=== PATIENT | male | born 1990 | race Caucasian/White ===

== ENCOUNTER 2024-02-19 10:02 | Emergency (ER) | payer BC, MEDICAID ==
[2024-02-19 10:38] VITALS: RESP 18
--- NOTE | 2024-02-19 10:46 | ED ---
Male Urogenital HPI - General Chief complaint: Urogenital Stated complaint: Swollen testies Time Seen by Provider: 02/19/24 10:24 Source: patient, family, RN notes reviewed Mode of arrival: wheelchair Limitations: no limitations - History of Present Illness Initial comments: This is a 33 year old male who presents to the emergency department for testicul ar swelling. States that yesterday he started to notice swelling to the left testicle. This happened to him a couple of years ago and states that it was due to a UTI. He saw his primary care provider who tested his urine and noted that there was some bacteria, but no nitrites in the urine. He was however started on Bactrim due to the bacteria and history of UTIs causing swelling to the testicle. He presents to the emergency department to make sure nothing else is going on. Denies any pain associated with this or drainage from the urethra. Complaint: testicle swelling - Related Data Previous Rx's Medication Instructions Recorded Levofloxacin [Levaquin] 500 mg PO DAILY 10 Days #10 tab 02/19/24 Allergies Allergy/AdvReac Type Severity Reaction Status Date / Time No Known Allergies Allergy Verified 02/19/24 10:11 Review of Systems ROS Statement: Those systems with pertinent positive or pertinent negative responses have been documented in the HPI. ROS Other: All systems not noted in ROS Statement are negative. Past Medical History Past Medical History: No Reported History History of Any Multi-Drug Resistant Organisms: None Reported Additional Past Surgical History / Comment(s): Back surgery 2007 Past Psychological History: No Psychological Hx Reported Smoking Status: Never smoker Past Alcohol Use History: Occasional Past Drug Use History: None Reported General Exam Limitations: no limitations General appearance: alert, in no apparent distress Head exam: Present: atraumatic, normocephalic, normal inspection Respiratory exam: Present: normal lung sounds bilaterally. Absent: respiratory distress, wheezes, rales, rhonchi, stridor Cardiovascular Exam: Present: regular rate, normal rhythm, normal heart sounds. Absent: systolic murmur, diastolic murmur, rubs, gallop, clicks exam: Present: other (Swelling to the left testicle with no erythema or tenderness. No urethral drainage.) Expanded exam: Cremasteric Reflex Present: Left, Right Neurological exam: Present: alert, oriented X3, CN II-XII intact Psychiatric exam: Present: normal affect, normal mood Skin exam: Present: warm, dry, intact, normal color. Absent: rash Course Vital Signs 02/19/24 02/19/24 10:06 12:17 Temperature 98 F 98.2 F Pulse Rate 120 H 99 Respiratory 18 18 Rate Blood Pressure 138/96 134/85 O2 Sat by Pulse 99 99 Oximetry Medical Decision Making - Medical Decision Making This is a 33-year-old male who presents to the emergency department for testicular swelling. Was pt. sent in by a medical professional or institution? @ -No Did you speak to anyone other than the patient for history? @ -No Did you review nursing and triage notes? @ -Yes, and I agree, it is accurate with regards to the patient's symptoms. Were old charts reviewed? @ -No Differential Diagnosis? @ -Differential Testicular Swelling: Epididymitis, varicocele, hydrocele, testicular torsion, UTI, STD, and is not meant to be all-inclusive list. EKG interpreted by me (3pts min.)? @ -Not obtained X-rays interpreted by me (1pt min.)? @ -Not obtained CT interpreted by me (1pt min.)? @ -Not obtained U/S interpreted by me (1pt. min.)? @ -Scrotal ultrasound obtained. My interpretation identifies no evidence of a testicular torsion. What testing was considered but not performed? (CT, X-rays, U/S, labs)? Why? @ -None What meds were considered but not given? Why? @ -None Did you discuss the management of the patient with other professionals? @ -No Did you reconcile home meds? @ -No Was smoking cessation discussed for >3mins.? @ -No Was critical care preformed (if so, how long)? @ -No Were there social determinants of health that impacted care today? How? (Homelessness, low income, unemployed, alcoholism, drug addiction, transportation, low edu. Level, literacy, decrease access to med. care, fdc, rehab)? @ -No Was there de-escalation of care discussed even if they declined? (Discuss DNR or withdrawal of care, Hospice)? @ -No What co-morbidities impacted this encounter? (DM, HTN, Smoking, COPD, CAD, Cancer, CVA, Hep., AIDS, mental health diagnosis, sleep apnea, morbid obesity)? @ -None Was patient admitted / discharged? @ -Discharged. Urinalysis demonstrates few bacteria but was not overtly positive for infection. Urine sent for culture. Scrotal ultrasound demonstrates a complex fluid collection around the left testicle with increased vascular flow findings concerning for epididymoorchitis. Findings reviewed with the patient. Prescription for Levaquin provided with dosing instructions reviewed. Also advised follow-up with his urologist. We discussed elevation of the scrotum, ibuprofen, and Tylenol as needed for discomfort. Undiagnosed new problem with uncertain prognosis? @ -None Drug Therapy requiring intensive monitoring for toxicity (Heparin, Nitro, Insulin, Cardizem)? @ -None Were any procedures done? @ -None Diagnosis/symptom? @ -Epididymoorchitis Acute, or Chronic, or Acute on Chronic? @ -Acute Uncomplicated (without systemic symptoms) or Complicated (systemic symptoms)? @ -Uncomplicated Side effects of treatment? @ -None Exacerbation, Progression, or Severe Exacerbation] @ -Not applicable Poses a threat to life or bodily function? @ -No Return precautions reviewed in depth, the patient is instructed to return to the emergency department with any new, worsening, or concerning symptoms. Patient verbalized understanding. This case was discussed in detail with the attending ED physician, Dr. Tse. Presentation, findings, and treatment plan discussed in detail as well. - Lab Data Lab Results 02/19/24 Range/Units 11:17 Urine Color Colorless Urine Appearance Clear (Clear) Urine pH 6.5 (5.0-8.0) Ur Specific [place] 1.002 (1.001-1.035) Urine Protein Negative (Negative) Urine Glucose (UA) Negative (Negative) Urine Ketones Negative (Negative) Urine Blood Negative (Negative) Urine Nitrite Negative (Negative) Urine Bilirubin Negative (Negative) Urine Urobilinogen <2.0 (<2.0) mg/dL Ur Leukocyte Esterase Small H (Negative) Urine RBC <1 (0-5) /hpf Urine WBC 3 (0-5) /hpf Ur Squamous Epith Cells <1 (0-4) /hpf Urine Bacteria Few H (None) /hpf Urine Yeast (Budding) Occasional H (None) /hpf - Radiology Data Radiology results: report reviewed, image reviewed Disposition Clinical Impression: Epididymo-orchitis, acute Disposition: HOME SELF-CARE Instructions (If sedation given, give patient instructions): Epididymo-Orchitis (ED) Additional Instructions: Return to the emergency department with any new, worsening, or concerning symptoms. Stop taking the Bactrim and begin taking the Levaquin once daily for 10 days. Follow-up with your urologist and let the IVF specialist know that you were diagnosed with epididymoorchitis and started on Levaquin. Follow up with your primary care provider in 1-2 days. Prescriptions: Levofloxacin [Levaquin] 500 mg PO DAILY 10 Days #10 tab Is patient prescribed a controlled substance at d/c from ED?: No Referrals: Carissa Peterson DO [Primary Care Provider] - 1-2 days Time of Disposition: 12:08
--- NOTE | 2024-02-19 11:17 | US ---
EXAMINATION TYPE: US scrotum with doppler. Grayscale and color Doppler Duplex imaging performed of t socrates scrotum. DATE OF EXAM: 02/19/2024 COMPARISON: 10/23/2014 CLINICAL INDICATION: Male, 33 years old with history of Left sided testical swelling; Left sided scro poonam edema EXAM MEASUREMENTS: TESTICLES: Right Testicle: 4.7 x 2.4 x 3.2 cm Left Testicle: 4.6 x 3.6 x 3.7 cm EPIDIDYMIS HEAD: Right Epididymis: 1.8 cm Left Epididymis: 2.3 cm Doppler performed to assess for testicular vascularity; good bilateral color flow and waveforms are s een. There is no evidence of testicular torsion. There is increased vascularity within the left karl tis. Presence of hydroceles: complex fluid collection left testicle = 3.9 x 2.7 x 3.2cm Presence of varicoceles: no increased vascularity left epididymitis and left testicle left epididymis appears thickened and heterogeneous Edema within scrotal sac IMPRESSION: Complex fluid collection around the left testicle with increased vascular flow findings concerning fo r epididymoorchitis. Short-term follow-up after treatment recommended.
[2024-02-19 11:45] LABS: Appearance,Urine Clear (Clear); Bacteria,Urine Few /hpf; Bilirubin,Urine Negative (Negative); Blood,Urine Negative (Negative); Budding Yeast,Urine Occasional /hpf; Color,Urine Colorless; Glucose,Urine (UA) Negative (Negative); Ketones,Urine Negative (Negative); Leukocyte Esterase,Urine Small (Negative); Nitrite,Urine Negative (Negative); PH, Urine 6.5 (5.0-8.0); Protein,Urine Negative (Negative); RBC,Urine <1 /hpf (0-5); Specific Gravity,Urine 1.002 (1.001-1.035); Squamous Epithelial Cell,Urine <1 /hpf (0-4); Urobilinogen,Urine <2.0 mg/dL (<2.0); WBC,Urine 3 /hpf (0-5)
[2024-02-19 12:33] VITALS: BP 134/85; PULSE 99; TEMP 98.2
== END 2024-02-19 12:17 | disposition home or self-care (01) ==
LOC: EC 10:02
DX: N45.3 Epididymo-orchitis (principal)
CPT/HCPCS: 76870; 81001; 93975; 99284